=== PATIENT | female | born 1995 | race African-American/Black ===

== ENCOUNTER 2018-04-08 21:00 | Inpatient (IN) | payer OTHER ==
[2018-04-09] MEDS ORDERED: Lidocaine 1% (PF) 30 ML VIAL SC PRN (06:19)
[2018-04-09] MEDS ORDERED: Ondansetron PF 4 MG/2 ML Vial IVP PRN ×3 (06:19→14:25)
[2018-04-09] MEDS ORDERED: Ibuprofen 800 MG TAB PO PRN (06:19)
[2018-04-09] MEDS ORDERED: Misoprostol 100 MCG TAB PO SCH (06:19)
[2018-04-09] MEDS ORDERED: NS / Oxytocin 40 units/1000ml 1,000 ML IV PRN (06:19)
[2018-04-09] MEDS ORDERED: NS w/ Oxytocin 10 units 500 ML IV SCH ×2 (06:19)
[2018-04-09] MEDS ORDERED: Carboprost 250 MCG/ML AMP IM PRN (06:19)
[2018-04-09] MEDS ORDERED: Diphenoxylate HCl/Atropine Tablet PO PRN (06:19)
[2018-04-09] MEDS ORDERED: Misoprostol 200 MCG TAB PR PRN (06:19)
[2018-04-09] MEDS ORDERED: Butorphanol Tartrate 1 MG/ML VIAL SLOW IVP PRN (06:19)
[2018-04-09] MEDS ORDERED: HYDROcodone/Acetaminophen 5/325 mg Tablet PO PRN ×2 (06:19→14:25)
[2018-04-09] MEDS ORDERED: Promethazine HCl 25 MG/ML VIAL IM PRN ×2 (06:19→10:48)
[2018-04-09] MEDS ORDERED: Methylergonovine 0.2 MG/ML VIAL IM PRN (06:19)
[2018-04-09] MEDS ORDERED: Penicillin G Potassium 5 MILL.UNITS in Sodium Chloride 0.9% 100 ML IVPB SCH (06:30)
[2018-04-09] MEDS: Lactated Ringer's 1,000 ML IV SCH ×2 (07:15→10:22)
[2018-04-09 07:46] LABS: Hemoglobin 11.7 g/dL (12.0-16.0); Mean Corpuscular Hemoglobin 25.2 pg (25.0-35.0); Mean Corpuscular Volume 76.4 fL (78.0-98.0); Mean Platelet Volume 10.4 fL (7.4-10.4); Platelet Count 178 thou/uL (130-400); Red Blood Cell (RBC) Count 4.65 mill/uL (4.00-5.20); White Blood Cell (WBC) Count 9.9 thou/uL (4.8-10.8)
[2018-04-09 08:06] VITALS: BMI 42.0
[2018-04-09 08:27] LABS: Hep B Surf Ag Non-Reactive S/CO (NonReactive)
[2018-04-09 08:42] LABS: Syphilis Antibody Nonreactive (Nonreactive)
[2018-04-09] MEDS ORDERED: Fentanyl 4 mcg/Bup 0.1% Cadd 100 ML ONE (09:30)
[2018-04-09] MEDS ORDERED: Terbutaline Sulfate 1 MG/ML VIAL ONE (09:41)
[2018-04-09] MEDS ORDERED: Bupivacaine 0.75% W/DEXTROSE 8.25% 2 ML AMP ONE (09:41)
[2018-04-09] MEDS ORDERED: Fentanyl 100 MCG/2 ML VIAL ONE (09:51)
[2018-04-09] MEDS ORDERED: Bupivacaine 0.5% 10 ML VIAL ONE (09:51)
[2018-04-09] MEDS ORDERED: Penicillin G 2.5 MILL.units 2.5 MILL.UNITS in Premix Bag 1 BAG IVPB SCH (10:30)
[2018-04-09] MEDS ORDERED: Bupivacaine 0.25% 10 ML VIAL EPIDURAL ONE (10:47)
[2018-04-09] MEDS ORDERED: ePHEDrine/0.9% NaCl/PF SYRINGE 50 mg/10 ml SLOW IVP PRN (10:48)
[2018-04-09] MEDS ORDERED: diphenhydrAMINE 50 MG/ML VIAL IVP PRN (10:48)
[2018-04-09] MEDS ORDERED: Naloxone HCl 0.4 mg/ml Vial IVP PRN ×2 (10:48)
[2018-04-09] MEDS ORDERED: Lactated Ringer's 500 ML IV PRN (10:48)
[2018-04-09] MEDS ORDERED: Fentanyl 100 MCG/2 ML VIAL I-THECAL ONE (10:48)
[2018-04-09] MEDS ORDERED: Acetaminophen 325 MG TAB PO PRN (10:48)
[2018-04-09] MEDS ORDERED: Eucerin (Mineral Oil/Petrolatum,White) 30 gm Jar TOP PRN (10:48)
[2018-04-09] MEDS ORDERED: Fentanyl 4 mcg/Bupivacaine 0.1% Cassette 100 ML EPIDURAL SCH (11:00)
[2018-04-09] MEDS ORDERED: Communication Order-Pharmacy FS SCH (11:00)
[2018-04-09] MEDS ORDERED: Lidocaine 2% MPF 10 ML AMP (For Epidural Use) ONE (11:11)
[2018-04-09] MEDS ORDERED: Adacel (T-DAP) 0.5 ML SYRINGE IM ONE (14:25)
[2018-04-09] MEDS ORDERED: Benzocaine/Menthol 20-0.5% 60 ML CAN TOP PRN (14:25)
[2018-04-09] MEDS ORDERED: Milk Of Magnesia 30 ML UDCUP PO PRN (14:25)
[2018-04-09] MEDS ORDERED: Bisacodyl 10 MG SUPP PR PRN (14:25)
[2018-04-09] MEDS ORDERED: diphenhydrAMINE 25 MG CAP PO PRN (14:25)
[2018-04-09] MEDS ORDERED: Lanolin Ointment 7 GM TUBE TOP PRN (14:25)
[2018-04-09] MEDS ORDERED: NS / Oxytocin 40 units/1000ml 1,000 ML IV SCH (14:25)
[2018-04-09] MEDS: Ferrous Sulfate 325 MG TAB PO SCH (17:21)
[2018-04-09] MEDS: Ibuprofen 800 MG TAB PO SCH (17:29)
[2018-04-09] MEDS: HYDROcodone/Acetaminophen 5/325 mg Tablet PO PRN (19:45)
[2018-04-10] MEDS: HYDROcodone/Acetaminophen 5/325 mg Tablet PO PRN (01:14)
[2018-04-10] MEDS: Ibuprofen 800 MG TAB PO SCH ×3 (01:14→14:47)
[2018-04-10] MEDS: Docusate Calcium (SURFAK) 240 MG CAP PO SCH ×2 (01:15→08:37)
[2018-04-10 07:07] LABS: Hemoglobin 11.5 g/dL (12.0-16.0); Mean Corpuscular HGB CONC 31.4 g/dL (32.0-36.0); Mean Corpuscular Hemoglobin 24.3 pg (25.0-35.0); Mean Corpuscular Volume 77.4 fL (78.0-98.0); Mean Platelet Volume 9.9 fL (7.4-10.4); Platelet Count 181 thou/uL (130-400); Red Blood Cell (RBC) Count 4.73 mill/uL (4.00-5.20); White Blood Cell (WBC) Count 13.9 thou/uL (4.8-10.8)
[2018-04-10] MEDS: Ferrous Sulfate 325 MG TAB PO SCH ×2 (08:37→17:07)
[2018-04-10] MEDS ORDERED: Prenatal Vitamin 1 TAB PO SCH (09:00)
[2018-04-10 11:24] VITALS: BP 109/58; TEMP 98.2
== END 2018-04-10 17:05 | disposition home or self-care (01) | DRG 807 ==
LOC: L&D 04-09 06:12 → L&D-LIB 04-09 06:12 → UNDOADMIN 04-09 06:12 → 3SW 04-09 15:31
PROVIDERS: ADMIT Family Medicine; ATTEND Family Medicine
PROC: 10E0XZZ Delivery of Products of Conception, External Approach (ICD-10-PCS; principal; 2018-04-09)
PROC: 10907ZC Drainage of Amniotic Fluid, Therapeutic from Products of Conception, Via Natural or Artificial Opening (ICD-10-PCS; 2018-04-09)
DX: O98.82 Other maternal infectious and parasitic diseases complicating childbirth (principal); Z37.0 Single live birth; Z3A.39 39 weeks gestation of pregnancy; B95.1 Streptococcus, group B, as the cause of diseases classified elsewhere; O99.213 Obesity complicating pregnancy, third trimester
CPT/HCPCS: 36415; 51702; 85027; 86780; 86850; 86900; 86901; 87340; 90715; J1200; J2001; J2405; J2540; J3010; J3105; J3490; J7050

== ENCOUNTER 2019-09-02 13:34 | Outpatient (CLI) | payer OTHER ==
--- NOTE | 2019-09-02 14:34 | ULT ---
OB ULTRASOUND: HISTORY: anatomy. FINDINGS: A single live intrauterine gestation is seen with measurements corresponding to an estimated gestatio nal age of 18 weeks 6 days and [place] at 01/28/2020. The estimated weight measures 264 grams or 9 ounces (40% by Hadlock criteria). measurements are as follows: BPD 4.23 cm, 18 weeks 6 days HC 15.35 cm, 18 weeks 3 days AC 12.63 cm, 18 weeks 2 days FL 3.16 cm, 19 weeks 6 days heart rate measures 160 b.p.m. Cervical length measures 4.9 cm. Amniotic fluid appears adequa te. The lips/nose are not seen. A 3-vessel cord, cord insertion, kidneys, bladder, stomach, 4-chamber heart, lateral ventricles, cerebellum, spine, upper and lower extremities are visualized an d demonstrate no definite anomalies. IMPRESSION: Single live intrauterine of 18 weeks 6 days estimated gestational age and estimated date of delivery at 01/28/2020. POS: [id number]
== END 2019-09-02 13:35 | disposition home or self-care (01) ==
LOC: BICULT 13:34
PROVIDERS: ATTEND Family Medicine
DX: O09.892 Supervision of other high risk pregnancies, second trimester (principal); Z3A.18 18 weeks gestation of pregnancy
CPT/HCPCS: 76805

== ENCOUNTER 2020-01-16 09:51 | Outpatient (CLI) | payer OTHER ==
[2020-01-17 12:34] LABS: SARS-CoV-2 MS2 Positive; SARS-CoV-2 N Gene Negative; SARS-CoV-2 S Gene Negative; SARS-CoV-2 by NAA Not Detected (NotDetected); SARS-CoV-2 orf1ab Negative
== END 2020-01-16 09:52 | disposition home or self-care (01) ==
LOC: LABSCS 09:51
PROVIDERS: ATTEND Family Medicine
DX: Z20.828 Contact with and (suspected) exposure to other viral communicable diseases (principal)
CPT/HCPCS: 87635; U0003

== ENCOUNTER 2020-01-19 19:15 | Inpatient (IN) | payer OTHER ==
[~2020-01-19 19:15] MED LIST: Bupivacaine 0.25% HCL 30 ML VIAL ONE; Bupivacaine/Epinephrine 0.25% 30 ML VIAL ONE; Lidocaine 2% MPF 10 ML AMP (For Epidural Use) ONE
[2020-01-19] MEDS ORDERED: Promethazine HCl 25 MG/ML VIAL IM PRN (20:23)
[2020-01-19] MEDS ORDERED: Methylergonovine 0.2 MG/ML VIAL IM PRN (20:23)
[2020-01-19] MEDS ORDERED: Ibuprofen 800 MG TAB PO PRN (20:23)
[2020-01-19] MEDS ORDERED: HYDROcodone/Acetaminophen 5/325 mg Tablet PO PRN (20:23)
[2020-01-19] MEDS ORDERED: Carboprost 250 MCG/ML AMP IM PRN (20:23)
[2020-01-19] MEDS ORDERED: Misoprostol 200 MCG TAB PR PRN (20:23)
[2020-01-19] MEDS ORDERED: NS / Oxytocin 40 units/1000ml 1,000 ML IV PRN (20:23)
[2020-01-19] MEDS ORDERED: hydrALAZINE 20 MG/ML VIAL SLOW IVP PRN (20:23)
[2020-01-19] MEDS ORDERED: Diphenoxylate HCl/Atropine Tablet PO PRN (20:23)
[2020-01-19] MEDS ORDERED: Lidocaine 1% (PF) 30 ML VIAL SC PRN (20:23)
[2020-01-19] MEDS ORDERED: Butorphanol Tartrate 1 MG/ML VIAL SLOW IVP PRN (20:23)
[2020-01-19] MEDS ORDERED: Ondansetron PF 4 MG/2 ML Vial IVP PRN (20:23)
[2020-01-19] MEDS ORDERED: NS w/ Oxytocin 10 units 500 ML IV SCH ×2 (20:30)
[2020-01-19] MEDS ORDERED: Penicillin G Potassium 5 MILL.UNITS in Sodium Chloride 0.9% 100 ML IVPB SCH (20:30)
[2020-01-19 20:49] VITALS: BMI 41.6
[2020-01-19] MEDS: Lactated Ringer's 1,000 ML IV SCH (21:27)
[2020-01-19] MEDS: Penicillin G 2.5 MILL.units 2.5 MILL.UNITS in Premix Bag 1 BAG IVPB SCH (21:27)
[2020-01-19 21:38] LABS: Hemoglobin 10.3 g/dL (12.0-16.0); Mean Corpuscular HGB CONC 32.4 g/dL (32.0-36.0); Mean Corpuscular Hemoglobin 21.8 pg (27.0-31.0); Mean Corpuscular Volume 67.5 fL (78.0-98.0); Mean Platelet Volume 11.1 fL (7.4-10.4); Platelet Count 218 thou/uL (130-400); RBC Distribution Width 15.7 % (11.5-14.5); White Blood Cell (WBC) Count 8.8 thou/uL (4.8-10.8)
[2020-01-19] MEDS: Misoprostol 100 MCG TAB PO SCH (21:41)
[2020-01-19 22:16] LABS: Syphilis Antibody Nonreactive (Nonreactive); Syphilis Antibody Index 0.45 S/CO (<1.00 Non-Reactive)
[2020-01-19 23:18] LABS: HBSAg Index 0.13 S/CO (0-0.99); Hep B Surf Ag Non-Reactive S/CO (NonReactive)
[2020-01-20] MEDS: Misoprostol 100 MCG TAB PO SCH ×2 (01:34→05:36)
[2020-01-20] MEDS: Penicillin G 2.5 MILL.units 2.5 MILL.UNITS in Premix Bag 1 BAG IVPB SCH ×2 (01:34→05:36)
[2020-01-20] MEDS ORDERED: Fentanyl 4 mcg/Bup 0.1% Cadd 100 ML ONE (02:59)
[2020-01-20] MEDS ORDERED: Fentanyl 100 MCG/2 ML VIAL ONE ×2 (03:05→15:03)
[2020-01-20] MEDS ORDERED: Acetaminophen 325 MG TAB PO PRN (04:06)
[2020-01-20] MEDS ORDERED: Naloxone HCl 0.4 mg/ml Vial IVP PRN ×2 (04:06)
[2020-01-20] MEDS ORDERED: Lactated Ringer's 500 ML IV PRN (04:06)
[2020-01-20] MEDS ORDERED: EPHEDRINE 25 MG/5 ML SYRINGE SLOW IVP PRN (04:06)
[2020-01-20] MEDS ORDERED: Promethazine HCl 25 MG/ML VIAL IM PRN ×2 (04:06→16:21)
[2020-01-20] MEDS ORDERED: diphenhydrAMINE 50 MG/ML VIAL IVP PRN (04:06)
[2020-01-20] MEDS ORDERED: Ondansetron PF 4 MG/2 ML Vial IVP PRN ×2 (04:06→16:21)
[2020-01-20] MEDS: Lactated Ringer's 1,000 ML IV SCH ×2 (04:12→05:36)
[2020-01-20] MEDS ORDERED: Communication Order-Pharmacy FS SCH (04:15)
[2020-01-20] MEDS ORDERED: Fentanyl 4 mcg/Bupivacaine 0.1% Cassette 100 ML EPIDURAL SCH (04:15)
[2020-01-20] MEDS ORDERED: Lidocaine 1% (PF) 30 ML VIAL ONE (15:06)
[2020-01-20] MEDS ORDERED: NS / Oxytocin 40 units/1000ml 1,000 ML ONE (15:07)
[2020-01-20] MEDS ORDERED: diphenhydrAMINE 25 MG CAP PO PRN (16:21)
[2020-01-20] MEDS ORDERED: HYDROcodone/Acetaminophen 5/325 mg Tablet PO PRN (16:21)
[2020-01-20] MEDS ORDERED: Milk Of Magnesia 30 ML UDCUP PO PRN (16:21)
[2020-01-20] MEDS ORDERED: NS / Oxytocin 40 units/1000ml 1,000 ML IV SCH (16:21)
[2020-01-20] MEDS ORDERED: hydrALAZINE 20 MG/ML VIAL SLOW IVP PRN (16:21)
[2020-01-20] MEDS ORDERED: Bisacodyl 10 MG SUPP PR PRN (16:21)
[2020-01-20] MEDS: HYDROcodone/Acetaminophen 5/325 mg Tablet PO PRN (17:39)
[2020-01-20] MEDS: Ferrous Sulfate 325 MG TAB PO SCH (17:44)
[2020-01-20] MEDS: Ibuprofen 800 MG TAB PO SCH (19:31)
[2020-01-21] MEDS: HYDROcodone/Acetaminophen 5/325 mg Tablet PO PRN (02:09)
[2020-01-21] MEDS: Ibuprofen 800 MG TAB PO SCH ×2 (05:27→14:21)
[2020-01-21] MEDS: Docusate Calcium (SURFAK) 240 MG CAP PO SCH ×2 (06:00→08:29)
[2020-01-21 06:12] LABS: Hemoglobin 9.3 g/dL (12.0-16.0); Mean Corpuscular Hemoglobin 21.4 pg (27.0-31.0); Mean Corpuscular Volume 69.2 fL (78.0-98.0); Mean Platelet Volume 10.8 fL (7.4-10.4); Platelet Count 166 thou/uL (130-400); RBC Distribution Width 15.7 % (11.5-14.5); Red Blood Cell (RBC) Count 4.34 mill/uL (4.20-5.40)
[2020-01-21] MEDS: Ferrous Sulfate 325 MG TAB PO SCH ×2 (08:29→17:08)
[2020-01-21] MEDS ORDERED: Prenatal Vitamin 1 TAB PO SCH (09:00)
[2020-01-21] MEDS ORDERED: Adacel (T-DAP) 0.5 ML SYRINGE IM ONE (09:00)
[2020-01-21 20:06] VITALS: BP 115/75; TEMP 98.8
== END 2020-01-21 20:07 | disposition home or self-care (01) | DRG 807 ==
LOC: L&D 20:06 → 3SW 01-20 17:24
PROVIDERS: ADMIT Family Medicine; ATTEND Family Medicine
PROC: 10907ZC Drainage of Amniotic Fluid, Therapeutic from Products of Conception, Via Natural or Artificial Opening (ICD-10-PCS; 2020-01-19)
PROC: 10E0XZZ Delivery of Products of Conception, External Approach (ICD-10-PCS; principal; 2020-01-20)
PROC: 0HQ9XZZ Repair Perineum Skin, External Approach (ICD-10-PCS; 2020-01-20)
DX: O24.420 Gestational diabetes mellitus in childbirth, diet controlled (principal); Z37.0 Single live birth; Z3A.39 39 weeks gestation of pregnancy; O99.214 Obesity complicating childbirth; E66.9 Obesity, unspecified; O99.52 Diseases of the respiratory system complicating childbirth; J45.20 Mild intermittent asthma, uncomplicated; O99.824 Streptococcus B carrier state complicating childbirth; Z20.828 Contact with and (suspected) exposure to other viral communicable diseases; O69.81X0 Labor and delivery complicated by cord around neck, without compression, not applicable or unspecified; O70.0 First degree perineal laceration during delivery; Z79.899 Other long term (current) drug therapy
CPT/HCPCS: 36415; 51702; 85027; 86780; 86850; 86900; 86901; 87340; J0595; J2001; J2405; J2590; J3010; S0020